=== PATIENT | male | born 1975 | race Caucasian/White ===

== ENCOUNTER 2019-01-07 15:56 | Emergency (ER) | payer BC, MEDICAID ==
[2019-01-07 16:49] LABS: BASOPHILS % (AUTO) 0.2 %; EOSINOPHILS # (AUTO) 0.1 10^3/uL (0.0-0.7); EOSINOPHILS % (AUTO) 0.5 %; HGB - HEMOGLOBIN 16.9 g/dL (14.0-18.0); LYMPHOCYTES # (AUTO) 0.6 10^3/uL (1.5-3.5); LYMPHOCYTES % (AUTO) 4.4 %; MEAN CORPUSCULAR HGB CONC 31.9 g/dL (32.0-36.0); MEAN CORPUSCULAR VOLUME 91.1 fL (80.0-94.0); MEAN PLATELET VOLUME 10.2 fL (7.4-11.4); MONOCYTES # (AUTO) 0.6 10^3/uL (0.0-1.0); MONOCYTES % (AUTO) 4.5 %; NEUTROPHILS # (AUTO) 11.3 10^3/uL (1.5-6.6); NEUTROPHILS % (AUTO) 89.8 %; PLT - PLATELET COUNT 284 10^3/uL (130-450); RED BLOOD COUNT 5.82 10^6/uL (4.70-6.10); RED CELL DISTRIBUTION WIDTH 14.3 % (12.0-15.0); WHITE BLOOD COUNT 12.6 x10^3/uL (4.8-10.8)
[2019-01-07 17:02] LABS: ALBUMIN 5.2 g/dL (3.2-5.5); ALBUMIN/GLOBULIN RATIO 1.4 (1.0-2.2); BILIRUBIN,TOTAL 1.3 mg/dL (0.2-1.0); TOTAL PROTEIN 8.9 g/dL (6.7-8.2)
[2019-01-07] MEDS ORDERED: SODIUM CHLORIDE 0.9% 1,000 ML IV ONE (17:42)
[2019-01-07] MEDS ORDERED: KETOROLAC 30 MG/ML VIAL IVP STA (17:42)
[2019-01-07] MEDS ORDERED: METOCLOPRAMIDE 10 MG/2 ML VIAL IVP STA (17:43)
--- NOTE | 2019-01-07 17:44 | ED Physician Documentation ---
PD HPI ABD PAIN - Stated complaint Stated Complaint: DIARRHEA, N/V - Chief complaint Chief Complaint: Abd Pain - History obtained from History obtained from: Patient - History of Present Illness Timing - onset: Today (43-year-old gentleman who became acutely ill this morning with diffuse abdominal cramps, vomiting and diarrhea. No known sick contacts. No recent travel.) Review of Systems Constitutional: reports: Sweats. denies: Fever Cardiac: denies: Chest pain / pressure, Palpitations Respiratory: denies: Dyspnea, Cough GI: reports: Abdominal Pain, Nausea, Vomiting, Diarrhea. denies: Hematemesis, Bloody / black stool PD PAST MEDICAL HISTORY - Present Medications Home Medications: Ambulatory Orders Medication Instructions Recorded Confirmed Ondansetron Odt [Zofran] 4 mg TL Q6H PRN #10 tablet 01/07/19 PD ED PE NORMAL - Vitals Vital signs reviewed: Yes - General General: Alert and oriented X 3, No acute distress - Cardiac Cardiac: RRR, No murmur - Respiratory Respiratory: No respiratory distress, Clear bilaterally - Abdomen Abdomen: Soft, Non tender - Neuro Neuro: Alert and oriented X 3, Normal speech Results - Vitals Vitals: Vital Signs - 24 hr 01/07/19 01/07/19 01/07/19 16:29 18:24 18:45 Temperature 37.7 C H 36.7 C 37.8 C H Heart Rate 89 83 Respiratory 18 16 Rate Blood Pressure 138/97 H 112/70 O2 Saturation 99 97 01/07/19 19:25 Temperature Heart Rate 75 Respiratory 14 Rate Blood Pressure 101/59 L O2 Saturation 95 Oxygen O2 Source Room air - Labs Labs: Laboratory Tests 01/07/19 01/07/19 16:44 16:44 WBC 12.6 H RBC 5.82 Hgb 16.9 Hct 53.0 H MCV 91.1 MCH 29.0 MCHC 31.9 L RDW 14.3 Plt Count 284 MPV 10.2 Neut # (Auto) 11.3 H Lymph # (Auto) 0.6 L Morris # (Auto) 0.6 Eos # (Auto) 0.1 Baso # (Auto) 0.0 Absolute Nucleated RBC 0.00 Nucleated RBC % 0.0 Sodium 141 Potassium 4.6 Chloride 102 Carbon Dioxide 27 Anion Gap 12.0 BUN 23 H Creatinine 1.0 Estimated GFR (MDRD) 82 L Glucose 142 H Calcium 10.0 Total Bilirubin 1.3 H AST 49 H ALT 76 H Alkaline Phosphatase 90 Total Protein 8.9 H Albumin 5.2 Globulin 3.7 Albumin/Globulin Ratio 1.4 Lipase 24 PD MEDICAL DECISION MAKING - ED course ED course: 43-year-old gentleman with clinical gastroenteritis, he is treated with IV fluids, Reglan, Toradol. On reexamination at about 7:35 PM after IV fluids and Reglan he had passed an oral challenge, abdominal exam was nontender. Close watchful waiting was advised. Departure - Departure Disposition: 01 Home, Self Care Clinical Impression: Gastroenteritis Condition: Good Record reviewed to determine appropriate education?: Yes Instructions: ED Gastroenteritis Viral Prescriptions: Ondansetron Odt [Zofran] 4 mg TL Q6H PRN #10 tablet PRN Reason: Nausea / Vomiting Comments: Return anytime if worse, or if pains focuses in the right lower quadrant. Or if not better in the next 12 to 18 hours.
[2019-01-07 19:26] VITALS: BP 101/59
[2019-01-07] MEDS ORDERED: ONDANSETRON ODT 4 MG Prepack 2 TL STA (19:38)
== END 2019-01-07 20:07 | disposition home or self-care (01) ==
LOC: ED 15:56
DX: K52.9 Noninfective gastroenteritis and colitis, unspecified (principal)
CPT/HCPCS: 36415; 80053; 83690; 85025; 96361; 96374; 96375; 99283; J2765